=== PATIENT | male | born 1965 | race Caucasian/White ===

== ENCOUNTER 2016-11-28 16:44 | Outpatient (CLI) | payer BC ==
--- NOTE | 2016-11-29 10:08 | Diagnostic Imaging Report ---
Indication: Cough Technique: 2 views of the chest Comparison: 10/29/2015. Findings: Lungs and pleural spaces are clear. Heart size is normal. Bones are unremarkable. No significant change. Impression: No acute process
== END 2016-11-28 18:44 | disposition home or self-care (01) ==
LOC: RAD 16:44
DX: Z01.818 Encounter for other preprocedural examination (principal); R05 Cough
CPT/HCPCS: 71020

== ENCOUNTER 2018-02-18 15:16 | Outpatient (CLI) | payer BC ==
--- NOTE | 2018-02-18 16:28 | Diagnostic Imaging Report ---
Indication: Pain Knee pain/trauma 3 views of the right knee were obtained. Findings: No acute fracture, malalignment, or joint effusion are identified. Bones are osteopenic. There is an old fracture of the fibular head. Joint space is relatively well-maintained. Impression: Negative for acute findings.
== END 2018-02-18 17:16 | disposition home or self-care (01) ==
LOC: RAD 15:16
DX: M25.561 Pain in right knee (principal)